=== PATIENT | female | born 1940 | race Caucasian/White ===

== ENCOUNTER 2017-05-09 17:05 | Observation (INO) | payer OTHER ==
[~2017-05-09] VITALS: Ht 157.5 cm; Wt 57.2 kg
[2017-05-09 18:11] LABS: BILIRUBIN,URINE NEGATIVE (NEGATIVE); CLARITY,URINE CLEAR (CLEAR); COLOR,URINE YELLOW (YELLOW); KETONES,URINE NEGATIVE (NEGATIVE); LEUKOCYTE ESTERASE ,URINE NEGATIVE (NEGATIVE); NITRITE,URINE NEGATIVE (NEGATIVE); PROTEIN,URINE DIPSTICK NEGATIVE (NEGATIVE); URINE UROBILINOGEN 0.2 mg/dL (0.2 - 1)
[2017-05-09 18:41] LABS: BACTERIA,URINE RARE /HPF; EPITHELIAL CELLS,URINE RARE /LPF; RBC,URINE 0-5 /HPF (0-5); WBC,URINE (MAN) 0-5 /HPF (0-5)
--- NOTE | 2017-05-09 20:07 | Diagnostic Imaging Report ---
EXAMINATION: PA and lateral views of the chest. COMPARISON: None CLINICAL HISTORY: Difficult to breathing DISCUSSION: Lines/tubes: None. Lungs: The lungs are well inflated and clear. No pneumonia or pulmonary edema. Pleura: There is no pleural effusion or pneumothorax. Heart and mediastinum: The cardiomediastinal silhouette is normal. Bones and soft tissues: No acute bony abnormalities. IMPRESSION: No acute cardiopulmonary abnormalities. Signed by: Dr. Darin Lozano M.D. on 05/09/2017 8:04 PM
[2017-05-09] MEDS ORDERED: ALBUTEROL SULF 0.083% NEB SOLN 3 ML NEB NEB STA (22:42)
[2017-05-09] MEDS ORDERED: IPRATROPIUM BROMIDE 0.02% 2.5 ML NEB NEB ONE (22:45)
[2017-05-09] MEDS ORDERED: METHYLPREDNISOLONE SOD SUCC 125 MG/2ML VIAL IV ONE (22:45)
[2017-05-09 22:55] LABS: BASOPHILS # (AUTO) 0.1 (0.0-0.1); BASOPHILS % 0.6 % (0.0-1.0); EOSINOPHILS # (AUTO) 0.1 (0.0-0.4); HEMATOCRIT 45.2 % (34.2-44.1); HEMOGLOBIN 15.2 g/dL (12.0-16.0); LYMPHOCYTES % 34.1 % (18.0-39.1); MEAN CORPUSCULAR HEMOGLOBIN 29.1 pg (28-32); MEAN CORPUSCULAR HGB CONC 33.6 g/dL (31-35); MEAN CORPUSCULAR VOLUME 86.6 fL (81-99); MONOCYTES % 11.2 % (4.4-11.3); NEUTROPHILS # (AUTO) 4.5 (2.1-6.9); NEUTROPHILS % 52.1 % (38.7-80.0); PLATELET COUNT 228 x10e3/uL (140-360); RED BLOOD COUNT 5.22 x10e6/uL (3.6-5.1); RED CELL DISTRIBUTION WIDTH 13.6 % (11.7-14.4)
[2017-05-09 23:05] LABS: INR 0.89; PROTHROMBIN TIME 12.5 seconds (11.9-14.5)
[2017-05-09 23:06] LABS: PARTIAL THROMBOPLASTIN TIME 24.8 seconds (23.8-35.5)
[2017-05-09 23:13] LABS: ALANINE AMINOTRANSFERASE 16 IU/L (0-55); ALBUMIN 3.5 g/dL (3.5-5.0); ALKALINE PHOSPHATASE 68 IU/L (40-150); BLOOD UREA NITROGEN 10 mg/dL (7-26); BUN/CREATININE RATIO 14 (6-25); CALCIUM 9.4 mg/dL (8.4-10.2); CARBON DIOXIDE 29 mmol/L (22-29); CHLORIDE 97 mmol/L (98-107); CREATINE KINASE 44 IU/L (29-168); CREATININE, SERUM 0.73 mg/dL (0.57-1.11); EST GLOMERULAR FILTRATION RATE > 60 ML/MIN (60-); GLUCOSE 183 mg/dL (74-118); SODIUM 135 mmol/L (136-145)
[2017-05-09 23:20] LABS: TROPONIN I 0.017 ng/mL (0-0.300)
[2017-05-09] MEDS ORDERED: CEFTRIAXONE SOD 1 GM VIAL IV ONE (23:45)
[2017-05-10] MEDS ORDERED: DEXTROSE 50% SYRINGE 50 ML IV PRN (01:45)
[2017-05-10] MEDS ORDERED: SODIUM CHLORIDE FLUSH 10 ML SYR INJ PRN (01:45)
[2017-05-10] MEDS ORDERED: CEFTRIAXONE SOD 1 GM VIAL IV SCH (01:45)
[2017-05-10] MEDS: ALBUTEROL/IPRATROPIUM 3 ML NEB NEB SCH ×3 (03:00→20:10)
[2017-05-10] MEDS ORDERED: SYMBICORT 16010.2 GM IH (03:58)
[2017-05-10] MEDS ORDERED: ZANTAC25 MG/1 ML (03:58)
[2017-05-10] MEDS ORDERED: SYNTHROID125 MCG PO (03:58)
[2017-05-10] MEDS ORDERED: TOPROL XL25 MG PO (03:58)
[2017-05-10] MEDS ORDERED: CIPRO500 MG PO (03:58)
[2017-05-10] MEDS ORDERED: OMEPRAZOLE40 MG PO (03:58)
[2017-05-10] MEDS ORDERED: ZANTAC 7575 MG PO (03:58)
[2017-05-10] MEDS ORDERED: VENTOLIN HFA18 GM INH (03:58)
[2017-05-10] MEDS ORDERED: GABAPENTIN300 MG PO (03:58)
[2017-05-10] MEDS ORDERED: METFORMIN HCL500 MG PO (03:58)
[2017-05-10] MEDS ORDERED: ASPIR 8181 MG PO (03:58)
[2017-05-10] MEDS ORDERED: SIMVASTATIN10 MG PO (03:58)
[2017-05-10] MEDS ORDERED: LISINOPRIL10 MG PO (03:58)
[2017-05-10] MEDS: METHYLPREDNISOLONE SOD SUCC 40 MG/ML VIAL IV SCH ×4 (06:00→20:54)
[2017-05-10 06:59] LABS: CREATINE KINASE MB 3.3 ng/mL (0.00-5.00); TROPONIN I 0.013 ng/mL (0-0.300)
[2017-05-10 09:22] VITALS: BP 118/60
[2017-05-10] MEDS: INSULIN REGULAR, HUMAN 100 UNIT/1 ML 3ML VIAL SQ SCH ×4 (10:20→20:56)
[2017-05-10 12:00] VITALS: BP 140/64
[2017-05-10 14:19] VITALS: BP 118/60
[2017-05-10 16:17] VITALS: BP 132/60
[2017-05-10 16:46] LABS: CREATINE KINASE MB 2.7 ng/mL (0.00-5.00); TROPONIN I 0.008 ng/mL (0-0.300)
--- NOTE | 2017-05-10 19:05 | History and Physical ---
PRIMARY CARE PHYSICIAN: Dr. Isaiah Jacobs. CHIEF COMPLAINT: Acute exacerbation of COPD. HISTORY: The patient is a 76-year-old female with known history of COPD and a smoker. Patient apparently did not use her nebulizer at home. The patient came in with acute exacerbation. She is doing much better now. White cell count is normal at 8.6. Wheezing has significantly subsided after IV Solu-Medrol. The patient is placed on observation. PAST MEDICAL HISTORY: COPD. Recurrent bronchitis. Hypertension. Hypothyroidism. Diabetes type 2. Hyperlipidemia. Reflux history. MEDICATIONS: List is reviewed. ALLERGIES: NO KNOWN DRUG ALLERGIES. PAST SURGICAL HISTORY: Hysterectomy, cholecystectomy and appendectomy. SOCIAL HISTORY: The patient is a smoker. She denies alcohol use and no recreational drug use. REVIEW OF SYSTEMS: Coughing and wheezing. PHYSICAL EXAMINATION: GENERAL: The patient is not in acute distress. He is awake. VITAL SIGNS: Temperature 98. Blood pressure 132/60. Pulse rate 69. Respirations 20. HEENT: Normocephalic, atraumatic. NECK: Supple grossly. PULMONARY: Diminished breath sounds with a few rhonchi. CARDIOVASCULAR: S1 and S2. Regular rate and rhythm. ABDOMEN: Soft. EXTREMITIES: No cyanosis or edema. NEUROLOGIC: No focal deficits. LABORATORY: Reviewed: Sodium is 135. Potassium 4, chloride 97, bicarb 29. BUN 10. Creatinine 0.7. Glucose 183. WBC is 8.7. Hemoglobin 15. Hematocrit 45. Platelets 228,000. Chest x-ray showed that the patient has no acute cardiopulmonary abnormality. IMPRESSION: 1. Acute exacerbation of COPD. 2. Hypoxia. 3. Acute bronchitis. PLAN: IV Solu-Medrol, tapering dose. Nebulizer treatment. Resume home medication. Patient in observation. Job#: [id number]
[2017-05-10 20:00] VITALS: BP 150/65
[2017-05-10] MEDS ORDERED: SIMVASTATIN 20 MG TAB PO SCH (21:00)
[2017-05-10] MEDS ORDERED: SODIUM CHLORIDE 0.9% 250ML 250 ML ONE (21:22)
[2017-05-10] MEDS ORDERED: CEFTRIAXONE SOD 1 GM/NS 50 ML 50 ML IV SCH (22:00)
[2017-05-11] VITALS: BP 131/61
[2017-05-11] MEDS: ALBUTEROL/IPRATROPIUM 3 ML NEB NEB SCH ×4 (00:05→11:15)
[2017-05-11 04:00] VITALS: BP 152/70
[2017-05-11] MEDS ORDERED: BUDESONIDE/FORMOTEROL 160/4.5MCG INHALER INH SCH (06:00)
[2017-05-11] MEDS ORDERED: LEVOTHYROXINE SODIUM 125 MCG TAB PO SCH (06:30)
[2017-05-11 06:52] LABS: BASOPHILS % 0.2 % (0.0-1.0); HEMATOCRIT 40.7 % (34.2-44.1); HEMOGLOBIN 13.8 g/dL (12.0-16.0); LYMPHOCYTES # (AUTO) 0.6 (1.0-3.2); LYMPHOCYTES % 3.6 % (18.0-39.1); MEAN CORPUSCULAR HEMOGLOBIN 29.4 pg (28-32); MEAN CORPUSCULAR HGB CONC 33.9 g/dL (31-35); MEAN CORPUSCULAR VOLUME 86.8 fL (81-99); MONOCYTES # (AUTO) 1.3 (0.2-0.8); MONOCYTES % 7.6 % (4.4-11.3); NEUTROPHILS # (AUTO) 14.8 (2.1-6.9); NEUTROPHILS % 87.9 % (38.7-80.0); PLATELET COUNT 201 x10e3/uL (140-360); RED BLOOD COUNT 4.69 x10e6/uL (3.6-5.1); RED CELL DISTRIBUTION WIDTH 13.9 % (11.7-14.4)
[2017-05-11 07:28] LABS: ANION GAP 12.1 mmol/L (8-16); BLOOD UREA NITROGEN 13 mg/dL (7-26); BUN/CREATININE RATIO 19 (6-25); CALCIUM 8.8 mg/dL (8.4-10.2); CARBON DIOXIDE 27 mmol/L (22-29); CHLORIDE 100 mmol/L (98-107); CREATININE, SERUM 0.69 mg/dL (0.57-1.11); EST GLOMERULAR FILTRATION RATE > 60 ML/MIN (60-); GLUCOSE 197 mg/dL (74-118); POTASSIUM 4.1 mmol/L (3.5-5.1); SODIUM 135 mmol/L (136-145)
[2017-05-11] MEDS ORDERED: FAMOTIDINE 20 MG TAB PO SCH (07:30)
[2017-05-11 07:45] VITALS: BP 122/58
[2017-05-11] MEDS ORDERED: METFORMIN HCL 500 MG TAB PO SCH (08:00)
[2017-05-11] MEDS: INSULIN REGULAR, HUMAN 100 UNIT/1 ML 3ML VIAL SQ SCH ×2 (08:30→11:30)
[2017-05-11] MEDS: METHYLPREDNISOLONE SOD SUCC 40 MG/ML VIAL IV SCH (09:00)
[2017-05-11] MEDS ORDERED: METOPROLOL SUCCINATE 25 MG TAB XL PO SCH (09:00)
[2017-05-11] MEDS ORDERED: GABAPENTIN 300 MG CAP PO SCH (09:00)
[2017-05-11] MEDS ORDERED: LISINOPRIL 20 MG TAB PO SCH (09:00)
[2017-05-11] MEDS ORDERED: PANTOPRAZOLE SOD 40 MG TABEC PO SCH (09:00)
[2017-05-11] MEDS ORDERED: ASPIRIN 81 MG CHEW TAB PO SCH (09:00)
--- NOTE | 2017-05-11 09:03 | Consultation ---
DATE OF CONSULTATION: May 10, 2017 REASON FOR CONSULTATION: Elevated T-wave. CONSULTING PHYSICIAN: Dr. Jose De Jesus Gorman HPI: This is a 76-year-old female that presented with shortness of breath and difficulty with breathing. According to the patient, she has a history of COPD and smokes daily, and for the last 7 to 10 days she has been having wheezing, difficulty breathing, anxiety, and dyspnea that she decided to come into the emergency room for evaluation. She also complained of difficulty with walking, productive cough, and exertion. She denies any chest pain, any palpitation, any dizziness, or diaphoresis. Troponin was negative. EKG showed normal sinus rhythm with elevated T-wave. PAST MEDICAL HISTORY: COPD, daily smoker, hypertension, hypothyroidism, hyperlipidemia, diabetes, acid reflux, skin cancer and vulva cancer. PAST SURGICAL HISTORY: Appendectomy, cholecystectomy, hysterectomy, tonsillectomy, thyroidectomy, and cancer removal from the vulva. FAMILY HISTORY: Noncontributory. SOCIAL HISTORY: She lives at home with the daughter and she smokes daily. MEDICATIONS: See med list. ALLERGIES: SHE IS NOT ALLERGIC TO ANY MEDICATION. REVIEW OF THE SYSTEMS: Negative except those mentioned above. PHYSICAL EXAMINATION: VITAL SIGNS: Temperature 97, heart rate 71, blood pressure 150/70, respiration 20, oxygen saturation 95% on room air. GENERAL: She is awake, alert, and oriented x3. HEENT: Mucous membranes moist. NECK: Supple. LUNGS: Bilaterally with decreased breath sounds. CARDIOVASCULAR: S1, S2 present. ABDOMEN: Soft. NEUROLOGICAL: Intact. EXTREMITIES: With no edema. LABS: Sodium 135, potassium 4.1, chloride 100, CO2 27, BUN 13, creatinine 0.69, glucose 197. White blood cell 16.8, hemoglobin 13.8, hematocrit 40.7, platelet 201,000. PT 12.5, PTT 24.8, INR 0.89. IMPRESSION: 1. Chronic obstructive pulmonary disease exacerbation. 2. Elevated T-wave. 3. Diabetes. 4. Hypertension. 5. Hypothyroidism. 6. Daily smoker. ASSESSMENT AND PLAN: Will go ahead and check her electrolytes, magnesium and potassium. She is pending an echocardiogram to assess the LV and the valve function. The high T-wave could be due to anxiety and difficulty catching her breath. Will resume her home medications. Counseled on tobacco cessation. No complaint of chest pain. Further cardiac workup pending clinical course. Thank you for this consultation. Dictated by: Lucinda Mcnally NP Job#: [id number]
[2017-05-11 11:35] VITALS: BP 120/58
[2017-05-11] MEDS ORDERED: medrol dose pak PO (14:15)
[2017-05-11] MEDS ORDERED: DOXYCYCLINE MO100 MG PO (14:16)
[2017-05-11] MEDS ORDERED: ROBITUSSIN AC PO (14:28)
[2017-05-11] MEDS ORDERED: SPIRIVA18 MCG INH (14:29)
[2017-05-11 15:48] VITALS: BP 125/68
== END 2017-05-11 15:15 | disposition home or self-care (01) ==
LOC: ER 17:05 → ERHOLD 05-10 01:44 → IMCU 05-10 10:53
PROVIDERS: ADMIT Internal Medicine; ATTEND Internal Medicine
DX: J44.0 Chronic obstructive pulmonary disease with (acute) lower respiratory infection (principal); J20.9 Acute bronchitis, unspecified; J44.1 Chronic obstructive pulmonary disease with (acute) exacerbation; F17.210 Nicotine dependence, cigarettes, uncomplicated; R09.02 Hypoxemia; E11.9 Type 2 diabetes mellitus without complications; I10 Essential (primary) hypertension; E03.9 Hypothyroidism, unspecified
CPT/HCPCS: 36415 ×3; 71020; 80048; 80053; 81001; 82550 ×2; 82553 ×2; 82948 ×2; 83735; 83880; 84484 ×2; 85025 ×2; 85610; 85730; 87400; 93005 ×3; 93306; 99284; G0378 ×2; J0696 ×3; J2920 ×2; J2930; J7050